=== PATIENT | female | born 1995 | race Caucasian/White ===

== ENCOUNTER 2019-10-23 19:49 | Outpatient (REF) | payer BC, SELFPAY | END 2019-10-23 20:09 | LOC: LBN 19:49 | PROVIDERS: PCP Internal Medicine; Visit Provider Internal Medicine | DX: N39.0 Urinary tract infection, site not specified (principal); R30.0 Dysuria | CPT/HCPCS: 87077; 87086; 87186 ==

== ENCOUNTER 2023-06-08 17:55 | Outpatient (REF) | payer SELFPAY | END 2023-06-08 17:56 | disposition home or self-care (01) | LOC: NCHCN 17:55 | PROVIDERS: PCP Family Medicine; Visit Provider Nurse Practitioner Family | DX: J02.9 Acute pharyngitis, unspecified (principal) | CPT/HCPCS: 87070 ==

== ENCOUNTER 2024-01-18 15:38 | Outpatient (REF) | payer BC, SELFPAY | END 2024-01-18 15:39 | disposition home or self-care (01) | LOC: LBN 15:38 | PROVIDERS: PCP Family Medicine; Visit Provider Obstetrics & Gynecology | DX: R30.0 Dysuria (principal) | CPT/HCPCS: 87077; 87086; 87186 ==

== ENCOUNTER 2024-03-23 16:33 | Outpatient (CLI) | payer BC, SELFPAY ==
[2024-03-23 17:04] LABS: HCG Quant, Pregnancy 1 mIU/mL (1-3)
[2024-03-23 22:39] LABS: Progesterone 0.6 ng/mL (See Table)
== END 2024-03-23 16:34 | disposition home or self-care (01) ==
LOC: LBO 16:33
PROVIDERS: PCP Family Medicine; Visit Provider Obstetrics & Gynecology
DX: N97.9 Female infertility, unspecified (principal); Z31.9 Encounter for procreative management, unspecified; R30.0 Dysuria
CPT/HCPCS: 36415; 84144; 84702

== ENCOUNTER 2024-04-11 21:13 | Outpatient (REF) | payer BC, SELFPAY | END 2024-04-11 21:14 | disposition home or self-care (01) | LOC: LBN 21:13 | PROVIDERS: PCP Family Medicine; Visit Provider Obstetrics & Gynecology | DX: R30.0 Dysuria (principal) | CPT/HCPCS: 87077; 87086; 87186 ==

== ENCOUNTER 2024-05-24 14:17 | Outpatient (CLI) | payer BC, SELFPAY ==
[2024-05-24 13:08] LABS: HCG Quant, Pregnancy 1 mIU/mL (1-3)
== END 2024-05-24 14:18 | disposition home or self-care (01) ==
LOC: LBO 14:18
PROVIDERS: PCP Family Medicine; Visit Provider Obstetrics & Gynecology
DX: Z32.02 Encounter for pregnancy test, result negative (principal)
CPT/HCPCS: 36415; 84702

== ENCOUNTER 2024-07-18 10:19 | Outpatient (REF) | payer BC, SELFPAY | END 2024-07-18 10:20 | disposition home or self-care (01) | LOC: LBN 10:19 | PROVIDERS: PCP Family Medicine; Visit Provider Obstetrics & Gynecology | DX: R30.0 Dysuria (principal) | CPT/HCPCS: 87086 ==

== ENCOUNTER 2024-08-17 01:10 | Outpatient (CLI) | payer BC, SELFPAY ==
[2024-08-17 16:18] LABS: Panorama Kit Sent via Fed Ex
[2024-08-17 16:33] LABS: Abs Immature Grans 0.03 10^3/uL (0.0-0.06); Absolute Basophil Count 0.03 10^3/uL (0.0-0.2); Absolute Monocyte Count 0.54 10^3/uL (0.1-0.8); Basophils % 0.3 %; Eosinophils % 1.8 %; HCT 40.7 % (36.0-46.0); HGB 13.8 g/dL (11.2-15.7); Immature Grans % 0.3 %; Lymphocytes % 18.5 %; MCH 29.3 pg (27.0-33.0); MCHC 33.9 % (32.0-36.0); MCV 86 fL (80-95); MPV 9.8 fL (8.0-11.0); Monocytes % 4.8 %; Neutrophils % 74.3 %; Platelet Count 297 10^3/uL (130-400); RBC 4.71 10^6/uL (3.93-5.22); RDW 11.7 % (11.7-14.6); RDW-SD 37.4 fL; WBC 11.27 10^3/uL (4.4-10.8)
[2024-08-17 16:46] LABS: Absolute Lymphocyte Count 2.08 10^3/uL (1.2-3.4); Absolute Neutrophil Count 8.37 10^3/uL (1.2-6.7)
[2024-08-20 09:26] LABS: Hepatitis B Surface Ag Negative (Negative)
[2024-08-20 09:52] LABS: HIV-1/2 Ag & Ab Screen Negative (Negative)
[2024-08-20 09:58] LABS: Hepatitis C Ab w Rflx HCV PCR Negative (Negative)
[2024-08-20 11:47] LABS: Varicella IgG Antibody Negative (See Note)
[2024-08-20 11:49] LABS: Rubella IgG Ab (UVM) Positive (See Note)
[2024-08-21 13:58] LABS: Syphilis IgG w/Reflex Nonreactive (Nonreactive)
[2024-08-22 18:19] LABS: Specimen WB Whole Blood
[2024-08-30 19:26] LABS: Result Summary NEGATIVE; Specimen WB Whole Blood
== END 2024-08-17 01:11 | disposition home or self-care (01) ==
LOC: LBO 01:10
PROVIDERS: PCP Family Medicine; Visit Provider Advanced Practice Midwife
DX: Z34.91 Encounter for supervision of normal pregnancy, unspecified, first trimester (principal)
CPT/HCPCS: 36415; 81220; 81222; 81329; 86787; 86803; 86850; 86900; 86901; 87340; 87389; 85025; 86762; 86780

== ENCOUNTER 2024-08-17 14:19 | Outpatient (REF) | payer BC, SELFPAY ==
[2024-08-17 17:45] LABS: *AMPHETAMINES SCREEN URINE Negative (Negative); *BARBITURATES SCREEN URINE Negative (Negative); *BENZODIAZEPINES SCREEN URINE Negative (Negative); Cannabinoids THC Negative (Negative); Cocaine Screen,Urine Negative (Negative); METHADONE URINE SCREEN Negative (Negative); OPIATES URINE SCREEN Negative (Negative); Tricyclic Antidepressants Negative (Negative)
[2024-08-20 12:01] LABS: Fentanyl Scr w/Rfx Confirm Negative ng/mL (<1)
[2024-08-24 15:14] LABS: Buprenorphine Negative ng/mL (Cutoff: 5.0); Norbuprenorphine Negative ng/mL (Cutoff: 2.5)
== END 2024-08-17 14:20 | disposition home or self-care (01) ==
LOC: LBN 14:19
PROVIDERS: PCP Family Medicine; Visit Provider Advanced Practice Midwife
DX: Z34.91 Encounter for supervision of normal pregnancy, unspecified, first trimester (principal)
CPT/HCPCS: 80307; 80348; 87086

== ENCOUNTER 2024-11-29 04:02 | Outpatient (CLI) | payer BC, SELFPAY ==
[2024-11-29 10:52] LABS: Abs Immature Grans 0.10 10^3/uL (0.0-0.06); HCT 37.7 % (36.0-46.0); HGB 12.5 g/dL (11.2-15.7); Immature Grans % 1.1 %; MCH 29.8 pg (27.0-33.0); MCHC 33.2 % (32.0-36.0); MCV 90 fL (80-95); MPV 9.6 fL (8.0-11.0); Platelet Count 268 10^3/uL (130-400); RBC 4.20 10^6/uL (3.93-5.22); RDW 12.9 % (11.7-14.6); RDW-SD 42.1 fL; WBC 9.39 10^3/uL (4.4-10.8)
[2024-11-29 11:09] LABS: Glucose,1 Hr (Glucola) 126 mg/dL (80-140)
== END 2024-11-29 04:03 | disposition home or self-care (01) ==
LOC: LBO 04:02
PROVIDERS: Obstetrics & Gynecology; PCP Family Medicine; Visit Provider Advanced Practice Midwife
DX: Z34.93 Encounter for supervision of normal pregnancy, unspecified, third trimester (principal)
CPT/HCPCS: 36415; 82950; 85025

== ENCOUNTER 2024-11-29 11:35 | Outpatient (REF) | payer BC, SELFPAY | END 2024-11-29 11:36 | disposition home or self-care (01) | LOC: LBN 11:35 | PROVIDERS: PCP Family Medicine; Visit Provider Advanced Practice Midwife | DX: N39.0 Urinary tract infection, site not specified (principal); N12 Tubulo-interstitial nephritis, not specified as acute or chronic | CPT/HCPCS: 87086 ==

== ENCOUNTER 2024-12-28 17:09 | Outpatient (REF) | payer BC, SELFPAY ==
[2024-12-28 18:57] LABS: Cannabinoids THC Negative (Negative)
[2024-12-31 11:43] LABS: Fentanyl Scr w/Rfx Confirm Negative ng/mL (<1)
== END 2024-12-28 17:10 | disposition home or self-care (01) ==
LOC: LBN 17:09
PROVIDERS: PCP Family Medicine; Visit Provider Advanced Practice Midwife
DX: Z34.93 Encounter for supervision of normal pregnancy, unspecified, third trimester (principal)
CPT/HCPCS: 80307; 80348

== ENCOUNTER 2025-01-23 12:21 | Outpatient (REF) | payer BC, SELFPAY | END 2025-01-23 12:22 | disposition home or self-care (01) | LOC: LBN 12:21 | PROVIDERS: PCP Family Medicine; Visit Provider Advanced Practice Midwife | DX: Z34.93 Encounter for supervision of normal pregnancy, unspecified, third trimester (principal) | CPT/HCPCS: 87081 ==

== ENCOUNTER 2025-02-21 18:48 | Outpatient (CLI) | payer BC, SELFPAY ==
[2025-02-21 19:47] VITALS: BP 125/84; PULSE 81; TEMP 208.2; TEMP 97.9
[2025-02-21] MEDS: Zolpidem 5 MG TAB PO (19:55)
--- NOTE | 2025-02-21 20:00 | NUR.NOTE ---
Nursing Note: Pt given Gaston Vasquez. Going home with SO to sleep and hydrate. No emesis while here.
--- NOTE | 2025-02-22 07:36 | W.OBNST ---
Date of service: 02/22/25 Time of Service: 07:36 NST Evaluation Reason for NST Reasons for Nonstress Test: OTHER, SEE COMMENT Reason for NST Other: Cramping, Rule out Labor Gestational Age Gestational Age in Weeks and Days: 39 Weeks and 4Days Test and Monitor Explained Test/Monitor Explained: Test Explained Vital Signs Blood Pressure: 125/84 Pulse: 81 Temperature: 208.2 F Weight: 187 lb Urine Results Urine Protein: Negative Urine Ketones: Positive Urine Glucose: Negative Urine Blood: Negative NST Information Date on Monitor: 02/21/25 Time on Monitor: 19:05 Date off Monitor: 02/21/25 Time off Monitor: 19:30 Total Time on Monitor: 25 NST Interventions: PO Hydration and Notify Provider Contraction Frequency: mild, irregular Comments: pt states she feels cramps NST Evaluation Patient States Movement: Present FHR Baseline: 140 Variability: Moderate 6-25 bpm Accelerations: 15x15 Decelerations: None NST Results: Reactive Note Ultrasound Done: N/A. NST Note Note: pt declines cervical check states no longer nauseated and has zofran tabs at home accepts ambien 5 mg PO for sleep NST Reviewed and Verified by: Morena Linares
[2025-02-22 07:37] VITALS: BP 125/84; PULSE 81; TEMP 208.2; TEMP 97.9
== END 2025-02-21 20:03 ==
LOC: BCD 18:49 → OBS 19:21
PROVIDERS: PCP Family Medicine; Visit Provider Advanced Practice Midwife
DX: Z3A.39 39 weeks gestation of pregnancy (principal); O47.1 False labor at or after 37 completed weeks of gestation
CPT/HCPCS: 59025

== ENCOUNTER 2025-02-26 05:06 | Inpatient (IN) | payer BC, SELFPAY ==
[2025-02-26] VITALS (258 sets, daily range): BP systolic 92–242; BP diastolic 50–172; PULSE 68–155; RESP 18–20; TEMP 36.6–37.6; O2SAT 80–100; BMI 33.5
--- NOTE | 2025-02-26 05:09 | HPE_ITS ---
Date of service: 02/26/25 Time of Service: 05:09 Assessment and Plan Assessment and plan (1) Spontaneous onset of labor: Status: Acute Assessment and plan: Admit to Center and routine admission labs. Comfort measures. Amada desires epidural at this time for pain relief. Anticipate . OB-HPI Labor/Delivery History of Present Illness Reason for Visit: NST Chief Complaint: Uterine Contractions. AYDEN Calculator Estimated Delivery Date Method Current WG Current Estimate 02/24/25 LMP (Certain) 40w 2d Other Estimates 02/25/25 Ultrasound #1 40w 1d Comments: Amada has been having regular contractions since 010 which are now stronger. History of Present Expected Delivery Route/Plan - CNM FOB - Brett Paris (his first child) BG Varicella non-immune, offer vaccines (pt aware) Wants access to tub, imagines she will want an epidural at some point; sole labor support=FOB GBS negative Specific Issues/Plan 1. Infertility treatment with Clomid for conception, Rx'ed at [facility]. 2. Nausea - zofran escribed. protonix 40 mg PO daily escribed. stopped taking when nausea improved. . 3. Migraine- taking excedrin with episodes of migraine, Referred to [facility] for consultation regarding headaches. 4. Restless legs (pre-dates ) - magnesium glycinate recommended daily. Stopped taking it. 5. Genetic testing options, SMA/CF - neg, cfDNA low risk female, Rh- neg. AFP declined 6. Reports last pap 2023 in [facility], records release signed- normal pap 2022. 7. Rh neg, (fetus Rh- by Ron), Pt aware - does not need Rhogam. 8. 5P screen+ patient ETOH use disorder, initial UDS=negative, 28 wk UDS=negative 9. At 19 wk FAS placenta low lying, repeat 28-30 wks 10/8: resolved: placental tip 4.3cm from os Assessment: History Reviewed & Current Informed Consent Informed Consent: Regional Anesthesia [facility] All Active Problems (Updated 02/26/25 @ 05:12 by Araseli Espinal CNM) Spontaneous onset of labor (Acute) Susceptible to varicella (non-immune), currently (Acute) Rh negative status during (Acute) fetus Rh neg (Acute) Migraine (Acute 11/27/13) Neuro consult: 10/2013 With & without migraine Basilar component Medical History Low lying placenta nos or without hemorrhage, unspecified trimester resolved at third trimester ultrasound Pyelonephritis Frequent UTI Infertility management Conceived while taking clomid Dysmenorrhea (10/16/13) Former smoker (10/16/13) 3Y Family History (Updated 08/17/24 @ 20:53 by Mackenzie Lopez) Mother Hypertension Migraines Sister Gestational hypertension Migraines Asthma Father Alcohol use disorder Maternal Grandfather Heart disease Hypertension Social History (Updated 08/17/24 @ 20:45 by Araseli Espinal CNM) Smoking/Tobacco Use Status: Former Tobacco Use Smoking risk assessment performed?: Yes Alcohol Intake: current Alcohol Intake frequency: holidays/special occasions only Drug use: Occasionally Substance use type: former substance user Date of last use: past use Adopted: No Foster care: No Household members: none Housing: house Number of Children: 0 Communication Needs: Corrective Lenses 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 [employer] Sexually active: Yes Current gender identity: male What is your relationship status?: Panel score (0-1 are the most socially isolated patients): 0 What type of physical activity do you participate in: walking Special flor needs: No Seatbelt use: always Helmet use: Yes Drive intox or ride w/intox catshovel driver: No Working smoke detector in home: Yes Fire extinguisher in home: Yes Carbon monox detector in home: Yes Do you feel safe at home: Yes Female Reproductive History Menstrual control method: none History History 4 Para 0 Hx # Term Pregnancies 0 Multiple births 0 Hx # Pregnancies 0 Ectopic pregnancies 0 AB induced 0 Hx Number of Living Children 0 AB spontaneous 3 Past Pregnancies Del. Date GA/Weeks # Preg Succ Route Wgt Sex Labor Lgth Anesth esia Location Prov Complic 09/29/23 Delivery Date: 09/29/23 Last Updated by: Nany Meeks CNM SABs x 3 early (8-12 weeks per pt, never confirmed CRL) Meds Allergies and Home Medications Allergies Allergy/AdvReac Type Severity Reaction Status Date / Time No Known Allergies Allergy Verified 02/20/25 09:58 Home Medications ?Medication ?Instructions ?Recorded ?Confirmed ?Type vits no.126-ferrous fum tab PO DAILY 01/18/24 02/20/25 History 28 mg iron-folic acid 800 mcg tablet (Classic ) pantoprazole 40 mg tablet,delayed 40 mg PO DAILY PRN 0 10/03/24 02/20/25 History release (Protonix) Exam Physical Exam Vital Signs Reviewed: Yes Constitutional Constitutional: mild distress Detailed Labor and Delivery Exam Dilation: 1 Effacement (%): 100 station: -1 Cervix position: posterior Consistency: soft Wesley Score: Cervical Points Exam 0 1 2 3 Dilation Closed 1-2cm 3-4 cm 5-6cm Effacement 0-30% 40-50% 60-70% 80% Consistency Firm Medium Soft Station -3 -2 -1,0 +1,+2 Position Posterior Mid Anterior Amniotic Membrane Status: Intact Monitor Mode: External Contraction Frequency(min): every 2-3 Contraction Duration(sec): 60 Contraction Intensity: Moderate/Strong Fetus A Heart Rate Baseline: 135 Monitor Accelerations: 15 X 15 Variability: Moderate (6-25 BPM) Presentation: Cephalic Categories: Category I Est. Weight: 7 lb HEENT Exam HEENT Exam: Normal Respiratory Exam Respiratory Exam: Normal Cardiovascular Exam Cardiovascular Exam: Normal Abdominal Exam Abdominal Exam: Normal Exam Exam: Normal Skin Exam Skin Exam: Normal Psychiatric Exam Psychiatric Exam: Normal Risk Assessment Risk for Shoulder Dystocia Historical/Initial OB: NEGATIVE FOR: Pelvic Abnormality, Pre- BMI>30, Previous Shoulder Dystocia or Previous Macrosomia 36 Weeks: NEGATIVE FOR: Current Gestational DM, EFW>4500gms or Maternal Weight Gain>40lbs 40 Weeks: NEGATIVE FOR: EFW> 4500 gms, Maternal Weight Gain >40lb or Post Dates Increased Risk?: No Delivery Plan @ 40 wks: Risk for Pre-Eclampsia Date Initiated/Initials: KM 08/17/24 Yes, if one or more: NEGATIVE FOR: Hx Pre-E/Gest HTN, Chronic HTN, Multiple Gestation, Pre-gestational DM, Renal Disease, Systemic Lupus or APA Syndrome Yes, if 2 or more: POSITIVE FOR: Nulliparity and Mother/Sister w/ Pre-E; NEGATIVE FOR: Age>= 35 yrs, >10yr btwn pregnancies, BMI>30, ethinicty or Previous IUGR Risk for Post- Hemorrhage Initial: NEGATIVE FOR: Multiple Gestation, Previous PPH, Known Clotting Deficiency, Grand Multiparity or Anticoagulation 36 Weeks: NEGATIVE FOR: Anemia, hgb<10, Low platelets(thrombocytopenia), Gestational HTN or Pre-E, Polyhydraminios or EFW>4500gms 40 Weeks: NEGATIVE FOR: Anemia, hgb<10, Low platelets (thrombocytopenia), Gestation HTN or Pre-E, Polyhydraminios or EFW>4500gms At Risk?: No Risks Reviewed Risks Reviewed Upon Admission: Yes
[2025-02-26] MEDS: Lactated Ringers 1,000 ML 125 ML IV (06:00)
[2025-02-26 06:45] LABS: Abs Immature Grans 0.15 10^3/uL (0.0-0.06); HCT 38.7 % (36.0-46.0); HGB 12.7 g/dL (11.2-15.7); Immature Grans % 1.0 %; MCH 28.0 pg (27.0-33.0); MCHC 32.8 % (32.0-36.0); MCV 85 fL (80-95); MPV 10.5 fL (8.0-11.0); Platelet Count 261 10^3/uL (130-400); RBC 4.53 10^6/uL (3.93-5.22); RDW 13.2 % (11.7-14.6); RDW-SD 40.9 fL; WBC 15.16 10^3/uL (4.4-10.8)
[2025-02-26] MEDS: FentaNYL/ROPIvacaine 2 mcg/ml and 0.1% 200 ML CADD Cassette EP (06:45)
--- NOTE | 2025-02-26 06:45 | ANES.PREOP_ITS ---
General Info Date of Service Date Performed: 02/26/25 Height: 5 ft 2 in Weight: 83.007 kg Body Mass Index (BMI): 33.5 Meds Allergies and Home Medications Allergies Allergy/AdvReac Type Severity Reaction Status Date / Time No Known Allergies Allergy Verified 02/20/25 09:58 Home Medication ?Medication ?Instructions ?Recorded vits no.126-ferrous fum tab PO DAILY 01/18/24 28 mg iron-folic acid 800 mcg tablet (Classic ) pantoprazole 40 mg tablet,delayed 40 mg PO DAILY PRN 0 10/03/24 release (Protonix) Current Visit Medications: Current Medications Generic Name Dose Route Start Last Admin Trade Name Freq PRN Reason Stop Dose Admin Fentanyl/Ropivacaine 200 ml 02/26/25 05:45 Fentanyl/Ropivacaine 2 Mcg/Ml And 0.1% 200 Ml Cadd Cassette EP DIRECTED SARA Ringer's Solution 1,000 mls @ 125 mls/hr 02/26/25 05:15 IV INFUSION SARA Sodium Chloride 0 ml 02/26/25 05:06 Normal Saline Flush 10 Ml Syr IVP PRN PRN Sodium Chloride 0 ml 02/26/25 08:30 Normal Saline Flush 10 Ml Syr IVP BID SARA Sodium Chloride 0 ml 02/26/25 05:06 Normal Saline 10 Ml Vial IJ DIRECTED PRN PFSH Active Problems Active Problems: Problem Status Onset Code Spontaneous onset of labor Acute Susceptible to varicella (non-immune), currently Acute O09.899, Z28.39 Rh negative status during Acute O26.899, Z67.91 Acute Z34.90 Migraine Acute 11/27/13 G43.909 Medical History Medical History Low lying placenta nos or without hemorrhage, unspecified trimester resolved at third trimester ultrasound Pyelonephritis Frequent UTI Infertility management Conceived while taking clomid Dysmenorrhea (10/16/13) Former smoker (10/16/13) 3Y Tobacco Smoking/Tobacco Use Status: Former Tobacco Use Alcohol Alcohol Intake: former Substance Use Substance use: Occasionally Substance use type: former substance user Date of last use: past use Prental History History 2 4 Para 0 Hx # Term Pregnancies 0 Multiple births 0 Hx # Pregnancies 0 Ectopic pregnancies 0 AB induced 0 Hx Number of Living Children 0 AB spontaneous 3 Past Pregnancies Del. Date GA/Weeks # Preg Succ Route Wgt Sex Labor Lgth Anesth esia Location Prov Complic 09/29/23 Delivery Date: 09/29/23 Last Updated by: Nany Meeks, MELLISAM SABs x 3 early (8-12 weeks per pt, never confirmed CRL) Vital Signs and Lab Results Vital Signs Most Recent Vital Signs in EMR: Most Recent Vital Signs Temp Pulse Resp BP Pulse Ox 36.6 C 88 20 111/50 L 100 02/26/25 05:39 02/26/25 06:41 02/26/25 05:39 02/26/25 06:41 02/26/25 06:40 Lab Results 02/26/25 05:39 Blood Type / Crossmatch: 2 Antibody Screen NEGATIVE Today Complete Blood Count: 2 WBC, (4.4-10.8) 15.16 10^3/uL H Today, 05:39 RBC, (3.93-5.22) 4.53 10^6/uL Today, 05:39 Hgb, (11.2-15.7) 12.7 g/dL Today, 05:39 Hct, (36.0-46.0) 38.7 % Today, 05:39 Plt Count, (130-400) 261 10^3/uL Today, 05:39 Anesthesia Assessment and Plan Anesthesia History Personal History: No History of Anesthesia Complications Family History: No Family History of Anesthesia Complications Exercise Tolerance Exercise Tolerance: Metabolic Equivalents>4 Cardiac & Pulmonary Exam Cardiac Exam: Normal S1/S2 Heart Sounds Pulmonary Exam: Clear Bilateral Breath Sounds Implantable Cardiac Device Does patient have a Pacemaker or an ICD?: No Airway Exam Known Difficult Airway: No Mallampati Class: 2 Mouth Opening: Normal (> 3cm) Thyromental Distance: Greater than 3 cm Neck Range of Motion: Full ROM Neck Circumference: Normal Teeth Condition: Normal Dentition ASA Classification ASA Score: ASA 2 Emergency Case?: No NPO Status NPO Status: NPO Clears >2 hours, Solids >8 hours and Full Stomach Status Status: Confirmed Anesthesia Plan Resuscitation Status: Full Code Anesthesia Technique: Labor Epidural Airway Planned: Natural Airway Monitors Used: Standard Monitors
--- NOTE | 2025-02-26 06:45 | W.ANESNEU ---
Epidural/Spinal Catheter Date Performed: 02/26/25 Procedure Start: 06:15 Procedure Stop: 07:05 Requesting Provider: Araseli Cai Procedure Location: Obstetrics Reason Performed: Labor Epidural Standard Monitors Applied: Blood Pressure, SpO2 and See EMR for corresponding vital signs Patient Position: Sitting Sedation Given (Indicate Dose Given): No Sedation given Patient Mental Status: Awake Sterility: Hand Hygiene, Surgical Cap, Surgical Mask, Sterile Gloves, Sterile Drape/Sheet and Chlorhexidine Procedure Location: L3-L4 Interspace Epidural Needle: Tuohy 18 Gauge Needle Length: 3.5 Inch Needle Approach: Midline Epidural Procedure: Skin Prepped, Sterile Drape Placed, 1% Lidocaine to skin and subcutaneous tissue with 25G needle, Tuohy Needle placed, LAVELLE to Saline Used, Epidural Catheter Placed, Negative Heme, Negative CSF Flow and Tuohy Needle Removed Catheter Placed?: Catheter Placed Test Dose (Indicate Dose Given): 3ml 1.5% Lidocaine with 1:200K Epinephrine Given and Negative Test Dose Loss of Resistance Depth (cm): 5 Catheter depth at skin (cm): 12 Dressing: Sorbaview Dressing Placed, Mastisol Used and Dressing reinforced with Tape Epidural Provider Bolus (Indicate Dose Given): Total bolus dose given in 3-5 ml divided doses and Total Ropivacaine 0.1% with Fentanyl 2mcg/ml Given from pump. (ml) Dose:: 5ml Additives (Indicate Dose Given ): None Infusion Medication: Medication Infusion Began Medication Infusion: Ropivacaine 0.1% with Fentanyl 2mcg/ml Maintenance Infusion Rate (ml/hour): 10 PCEA Bolus Dose (ml): 5 Block Level: N/A Paresthesia: Right Paresthesia Duration: Transient Ultrasound: Not Used Number of Attempts (See previous attempts in note section): 1 Procedure Tolerated: No Complications and Patient tolerated well Procedure Outcome: Successful Procedure Comment:: Catheter placed with ease. Negative test, dosed with good bilateral relief. Educated on PCEA. Performed By: Pierre Bryant
[2025-02-26] MEDS: Oxytocin/Normal Saline 30 UNIT/500 ML BAG 2 UNITS IV (07:43)
--- NOTE | 2025-02-26 10:56 | W.PM.OBNL1 ---
Date of service: 02/26/25 Time of Service: 10:56 Informed Consent Informed Consent: Augmentation of Labor, Regional Anesthesia and Risk,Benefits,Alternatives Discussed Pelvic Exam Dilation: 8 Effacement (%): 100 station: 0 Contractions Monitor Mode: External Contraction Frequency(min): q2-3 Intensity: Moderate/Strong Fetus A Monitor: External (US) Heart Rate Baseline: 140 Variability: Moderate (6-25 BPM) Categories: Category I Accelerations: Present Decelerations: None Amniotic Membrane Status: Ruptured Rupture Method: Spontaneous Amniotic Fluid: Clear Amount: moderate Date of Membrane Rupture: 02/26/25 Assessment and Plan Assessment and plan (1) Spontaneous onset of labor: Status: Acute Assessment and plan: A: Effective epidural, SROM confirmed, active labor Pitocin augmentation was started after epidural was placed Category 1 tracing, GBS negative P: Anticipate today Objective Abnormal lab results 02/26/25 Range/Units 05:39 WBC 15.16 H (4.4-10.8) 10^3/uL Absolute Neutrophils 12.13 H (1.2-6.7) 10^3/uL Temp Pulse Resp BP Pulse Ox 97.9 F 83 18 115/78 100 02/26/25 07:54 02/26/25 10:55 02/26/25 09:00 02/26/25 10:43 02/26/25 10:55 Laboratory Results WBC 15.16 10^3/uL (4.4-10.8) H 02/26/25 05:39 RBC 4.53 10^6/uL (3.93-5.22) 02/26/25 05:39 Hgb 12.7 g/dL (11.2-15.7) 02/26/25 05:39 Hct 38.7 % (36.0-46.0) 02/26/25 05:39 MCV 85 fL (80-95) 02/26/25 05:39 MCH 28.0 pg (27.0-33.0) 02/26/25 05:39 MCHC 32.8 % (32.0-36.0) 02/26/25 05:39 RDW 13.2 % (11.7-14.6) 02/26/25 05:39 Plt Count 261 10^3/uL (130-400) 02/26/25 05:39 MPV 10.5 fL (8.0-11.0) 02/26/25 05:39 Immature Gran % 1.0 % 02/26/25 05:39 Neutrophils % 80.0 % 02/26/25 05:39 Lymphocytes % 13.5 % 02/26/25 05:39 Monocytes % 4.9 % 02/26/25 05:39 Eosinophils % 0.3 % 02/26/25 05:39 Basophils % 0.3 % 02/26/25 05:39 Nucleated RBC % 0.0 % (0.0-0.3) 02/26/25 05:39 Absolute Neutrophils 12.13 10^3/uL (1.2-6.7) H 02/26/25 05:39 Absolute Lymphocytes 2.05 10^3/uL (1.2-3.4) 02/26/25 05:39 Absolute Monocytes 0.74 10^3/uL (0.1-0.8) 02/26/25 05:39 Absolute Eosinophils 0.05 10^3/uL (0.0-0.7) 02/26/25 05:39 Absolute Basophils 0.05 10^3/uL (0.0-0.2) 02/26/25 05:39 ABO/Rh O Negative 02/26/25 05:39 Antibody Screen NEGATIVE 02/26/25 05:39 Subjective Interval history since last seen: water broke with a pop. feeling some rectal pressure with contractions, epidural is effective though pt can feel when she has a contraction.
[2025-02-26] MEDS: Oxytocin/Normal Saline 30 UNIT/500 ML BAG 95 UNITS IV (13:53)
[2025-02-26] MEDS: miSOPROStol 200 MCG TAB 600 MCG SL (14:04)
[2025-02-26] MEDS: Methylergonovine 0.2 MG/ML VIAL (14:43)
[2025-02-26] MEDS: TRANEXAMIC ACID/SOD. CHL. 1,000 MG/100 ML BAG 600 MG IVPB (14:45)
[2025-02-26] MEDS: fentaNYL 100 MCG/2 ML VIAL (14:53)
--- NOTE | 2025-02-26 15:33 | OBVDS_ITS ---
Date of service: 02/26/25 Time of Service: 15:33 OB Labor/ Delivery Information Baby A Delivery Delivery Method: Spontaneaous Presentation: Cephalic Cephalic Position: Vertex Vertex Position: Left Occipital Anterior Breech Position: N/A Cord Description-Baby A: 3 Vessels and Nuchal Cord Amniotic Fluid: Clear Quantitative Blood Loss: 875 Delivery Outcome: Liveborn Transferred: Remains with Mother Note: Patient progresses to full dilation after SROM and pitocin augmentation @ 6mu/min, category 1 tracing noted at 2nd stage huddle, jenkins catheter removed and no increased risks for PPH or SD identified. Pt chose to push in kneeling position on the bed and within the first hour accomplished of a vigorous female, nuchal cord reduced and nuchal hand noted, shoulder delivered with ease and pt assisted to semi-fowlers, infant placed in mothers arms for skin to skin, pitocin bolus begun, cord limp and flaccid, clamped and cut by FOB, cord blood collected. [place] placenta delivered intact with 3VC, 1st degree perineal laceration repaired with 3.0 Vicryl under epidural anesthesia, no other lacerations visualized, upper vaginal vault and cvx sweep done for no clots, steady trickle of lochia noted and 600 mcg misoprostel PO given. Pt remains hemostatically stable bonding with baby, apgars 9/9, weight 3120 gms. Providers Nurse Maintenance Shop Clerk: Morena Linares Nurse: Helen Mehta Nurse: Brenda Quinn Labor/Delivery Information Steroids Given: None Reason Steroids Not Administered: N/A Group Beta Strep: Negative Antibiotics Administered: No Number of Doses of Antibiotics: 0 Rubella Status: Immune Blood Type: O- Varicella Immunity: Nonimmune Shoulder Dystocia: No Stages of Labor Onset of Labor Date: 02/25/25 Onset of Labor Time: 19:00 Complete Dilatation Date: 02/26/25 Complete Dilatation Time: 12:43 Labor - Stage 1 Duration: 17 hours and 43 minutes ROM Baby A: 02/26/25 ROM Baby A: 09:40 ROM Total Time- Baby A: [id number] Delivery Date-Baby A: 02/26/25 Delivery Time-Baby A: 13:51 Labor Stage 2 Duration: 1 hours and 8 minutes Placenta Delivery Date-Baby A: 02/26/25 Placenta Delivery Time-Baby A: 14:00 Labor-Stage 3 Duration: 9 minutes Total Length of Labor-Baby A: 18 hours and 51 minutes Placenta Status: Delivered Baby A Gender: Female Gestational Age in Weeks/Days: 40 Weeks and 2 Days weight: 6 lb 14.055 oz Weight Comment: 3120 gms Score-1 Minute Interval(Baby A) Heart Rate-1 minute: 100 BPM or Greater Respiratory Effort- 1 minute: Spontaneous/Strong Cry Muscle Tone-1 minute: Active Movement Reflex Response-1 minute: Prompt Response Color-1 minute: Bluish Hands or Feet Total Score-1 minute: 9 Score-5 Minute Interval(Baby A) Heart Rate- 5 minute: 100 BPM or Greater Respiratory Effort-5 minute: Spontaneous/Strong Cry Muscle Tone-5 minute: Active Movement Reflex Response-5 minute: Prompt Response Color-5 minute: Bluish Hands or Feet Total Score- 5 minute: 9
--- NOTE | 2025-02-26 15:59 | W.ANESPOSTOP ---
Postoperative Evaluation Date, Time and Location Date Performed: 02/26/25 Time Performed: 15:59 Patient Location: Obstetrics Vital Signs Most Recent Imported Vital Signs: Most Recent Vital Signs Temp Pulse Resp BP Pulse Ox 36.7 C 119 H 18 130/70 99 02/26/25 13:12 02/26/25 15:57 02/26/25 13:00 02/26/25 15:39 02/26/25 15:57 Pain Score Most Recent Pain Score: Most Recent Pain Score Pain Level 0 02/26/25 11:00 Assessment Mental Status: Awake (Alert & Oriented to Patient Baseline) Airway and Respiratory Function: Patent airway with normal (patient baseline) respiratory exam Cardiovascular Function: Hemodynamically Stable Hydration Status: Adequately Hydrated Nausea & Vomiting: No Nausea or Vomiting Pain: Pt. Denies Any Pain Peripheral Nerve Block: Patient did not receive a nerve block
[2025-02-26] MEDS: Acetaminophen 325 MG TAB 650 MG PO (21:30)
[2025-02-26] MEDS: Ibuprofen 600 MG TAB PO (21:30)
[2025-02-26] MEDS: Hamamelis Leaf/Glycerin 100 EACH BOX PR (21:38)
[2025-02-26] MEDS: Dibucaine 1% 28 GM TUBE TP (21:38)
[2025-02-27 01:23] VITALS: BP 107/75; PULSE 95; RESP 18; O2SAT 96
[2025-02-27] MEDS: Acetaminophen 325 MG TAB 650 MG PO (05:15)
[2025-02-27] MEDS: Ibuprofen 600 MG TAB PO (05:15)
[2025-02-27 06:41] LABS: Abs Immature Grans 0.10 10^3/uL (0.0-0.06); HCT 34.5 % (36.0-46.0); HGB 12.3 g/dL (11.2-15.7); Immature Grans % 0.7 %; MCH 31.5 pg (27.0-33.0); MCHC 35.7 % (32.0-36.0); MCV 88 fL (80-95); MPV 9.8 fL (8.0-11.0); Platelet Count 202 10^3/uL (130-400); RBC 3.91 10^6/uL (3.93-5.22); RDW 13.5 % (11.7-14.6); RDW-SD 43.8 fL; WBC 14.26 10^3/uL (4.4-10.8)
[2025-02-27 09:30] VITALS: BP 110/76; PULSE 102; TEMP 36.6
--- NOTE | 2025-02-27 10:06 | W.PM.OBPNV1 ---
Date of service: 02/27/25 Time of Service: 10:06 Assessment and Plan Assessment and plan (1) Care and examination of lactating mother: Status: Acute (2) Term delivered: Status: Acute Assessment and plan: A: PPD#1, satisfied with experience off to a good start Nml course P: Pt desires discharge today when is released Offer varicella vaccine prior to discharge is Rh negative, RhoGam not indicated Pt will not use contraception d/t fertility issues F/up at 2 & 6 wks Written instructions reviewed and given to pt Exam Physical Exam Vital signs: Temp Pulse Resp BP Pulse Ox 98.1 F 95 H 18 107/75 96 02/26/25 21:30 02/27/25 01:23 02/27/25 01:23 02/27/25 01:23 02/27/25 01:23 Vital Signs Reviewed: Yes Constitutional Constitutional: no acute distress, average body habitus and cooperative HEENT Exam HEENT Exam: Normal Neck Exam Neck Exam: Normal Breast Exam Bilateral: Breast Exam: Normal and Soft Nipple Exam: Normal and Uninjured Respiratory Exam Respiratory Exam: Normal Cardiovascular Exam Cardiovascular Exam: Normal Abdominal Exam Abdomen: Other (soft, nontender) Fundal Exam Fundus: Below Umbilicus and Firm Rectal Exam Rectal Exam: Normal Exam Perineum: Repair Intact Extremities Exam Extremity Exam: Normal, Full ROM and Warm to Touch Back/Spine/Pelvis Exam Back Exam: Normal Skin Exam Skin Exam: Normal Neurological Exam Neurological Exam: Normal Psychiatric Exam Psychiatric Exam: Normal Results Hemoglobin/Hematocrit: Hgb 12.3 g/dL (11.2-15.7) 02/27/25 06:30 Hct 34.5 % (36.0-46.0) L 02/27/25 06:30 Abnormal Lab Findings: Abnormal Labs 02/26/25 02/27/25 05:39 06:30 WBC 15.16 H 14.26 H RBC 3.91 L Hct 34.5 L Absolute Neutrophils 12.13 H 11.11 H Absolute Monocytes 0.98 H
--- NOTE | 2025-02-27 10:09 | W.PM.OBDISCH ---
Date of service: 02/27/25 Time of Service: 10:09 DS: Diagnosis Discharge Diagnosis (1) Care and examination of lactating mother: Status: Acute (2) Term delivered: Status: Acute Discharge Plan Disposition Patient Disposition: Home Condition: Good Discharge Details Reason For Visit: Labor Admit Date/Time: 02/26/25 05:06 Admit Provider: Araseli Espinal Attending Provider: Araseli Espinal Primary Care Provider: Jakob Bowling Hospital Course Hospital Course: under epidural anesthesia on day of admission, pt desires discharge on day 1, nml course Home Meds and New Rx's Prescriptions: No Action pantoprazole [Protonix] 40 mg tablet,delayed release (DR/EC) 40 mg PO DAILY PRN Classic 28 mg iron- 800 mcg tablet PO DAILY Discharge Instructions Additional Instructions: 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 Stand Alone Forms: BC Instructions, BC Post Vaginal Deliver, Portal Information Activity:: Activity as Tolerated Equipment/Supplies:: No Equipment Needed Diet:: Normal Diet OB:DS Summary Summary Vaginal Delivery Method: Spontaneaous Episiotomy Description: None Laceration Description: Perineal Laceration Extension: First Degree Contraception Discussed Contraception Discussed: Yes Contraceptive Plan: Not planning to use, Gender-Baby A: Female weight: 6 lb 14.055 oz Status at Discharge Functional status at discharge: independent ambulation Overall status at discharge: patient is progressing back to baseline Mental Status: mental status grossly normal Speech and Movement: speech and movement normal and speech clear Mood: congruent mood Affect: normal affect Exam Physical Exam Vital signs: Temp Pulse Resp BP Pulse Ox 98.1 F 95 H 18 107/75 96 02/26/25 21:30 02/27/25 01:23 02/27/25 01:23 02/27/25 01:23 02/27/25 01:23 Constitutional Constitutional: no acute distress, average body habitus and cooperative HEENT Exam HEENT Exam: Normal Neck Exam Neck Exam: Normal Breast Exam Bilateral: Breast Exam: Normal and Soft Respiratory Exam Respiratory Exam: Normal Cardiovascular Exam Cardiovascular Exam: Normal Abdominal Exam Abdomen: Other (soft, nontender) Fundal Exam Fundus: Below Umbilicus and Firm Exam Perineum: Repair Intact Extremities Exam Extremity Exam: Normal, Full ROM and Warm to Touch Back/Spine/Pelvis Exam Back Exam: Normal Skin Exam Skin Exam: Normal Neurological Exam Neurological Exam: Normal Psychiatric Exam Psychiatric Exam: Normal PFSH All Active Problems (Updated 02/27/25 @ 10:05 by Morena Linares) Care and examination of lactating mother (Acute) Term delivered (Acute) Susceptible to varicella (non-immune), currently (Acute) Migraine (Acute 11/27/13) Neuro consult: 10/2013 With & without migraine Basilar component Medical History Rh negative status during fetus Rh neg Spontaneous onset of labor Low lying placenta nos or without hemorrhage, unspecified trimester resolved at third trimester ultrasound Pyelonephritis Frequent UTI Infertility management Conceived while taking clomid Dysmenorrhea (10/16/13) Former smoker (10/16/13) 3Y Family History (Updated 08/17/24 @ 20:53 by Mackenzie Lopez) Mother Hypertension Migraines Sister Gestational hypertension Migraines Asthma Father Alcohol use disorder Maternal Grandfather Heart disease Hypertension Social History (Updated 08/17/24 @ 20:45 by Araseli Espinal CNM) Smoking/Tobacco Use Status: Former Tobacco Use Smoking risk assessment performed?: Yes Alcohol Intake: former Drug use: Occasionally Substance use type: former substance user Date of last use: past use Adopted: No Foster care: No Household members: none Housing: house Number of Children: 0 Communication Needs: Corrective Lenses current occupation: [employer] AND [employer] Sexually active: Yes Current gender identity: male What is your relationship status?: Panel score (0-1 are the most socially isolated patients): 0 What type of physical activity do you participate in: walking Special flor needs: No Seatbelt use: always Helmet use: Yes Drive intox or ride w/intox trolley coach driver: No Working smoke detector in home: Yes Fire extinguisher in home: Yes Carbon monox detector in home: Yes Do you feel safe at home: Yes Do you feel safe in your relationship?: Yes Female Reproductive History Menstrual control method: none History History 4 Para 0 Hx # Term Pregnancies 0 Multiple births 0 Hx # Pregnancies 0 Ectopic pregnancies 0 AB induced 0 Hx Number of Living Children 0 AB spontaneous 3 Past Pregnancies Del. Date GA/Weeks # Preg Succ Route Wgt Sex Labor Lgth Anesthesia Location [facility] 09/29/23 Delivery Date: 09/29/23 Last Updated by: Nany Meeks, SARAH SABs x 3 early (8-12 weeks per pt, never confirmed CRL) DS: Data Vitals/I&O Vitals and I&O: Vital Signs Temperature 98.1 F 02/26/25 21:30 Temperature 97.9 F 02/26/25 04:43 Temperature Source Oral 02/26/25 21:30 Pulse 95 H 02/27/25 01:23 Pulse 83 02/26/25 04:43 Pulse Rhythm Regular 02/26/25 19:30 Respiratory Rate 18 02/27/25 01:23 Blood Pressure 107/75 02/27/25 01:23 Blood Pressure 107/62 02/26/25 04:43 Blood Pressure Mean 85 02/27/25 01:23 Pulse Oximetry 96 02/27/25 01:23 Oxygen Delivery Method Room Air 02/26/25 05:39 Oxygen Flow Rate 0 02/26/25 05:39 Pain Level 0 02/26/25 11:00 Comment miso given at 1400 02/26/25 18:00 Intake & Output 02/26/25 02/26/25 02/27/25 11:59 23:59 11:59 Intake Total 3.567 / 8643.572 4968 / 1003.567 Output Total 2225 / 2225 100 / 100 Balance 3.567 / -1221.433 -1225 / -1221.433 -100 / -100 Weight 183 lb Intake: IV 3.567 / 8962.930 8072 / 1003.567 Output: Urine 1245 / 1245 100 / 100 Blood 980 / 980 Other: Urine Color Pale Comment pt voided before anesthesia Data Completed and Pending Pending Labs at Discharge: 02/26/25 02/27/25 05:39 06:30 WBC 15.16 H 14.26 H RBC 4.53 3.91 L Hgb 12.7 12.3 Hct 38.7 34.5 L MCV 85 88 MCH 28.0 31.5 MCHC 32.8 35.7 D RDW 13.2 13.5 Plt Count 261 202 MPV 10.5 9.8 Immature Gran % 1.0 0.7 Neutrophils % 80.0 77.9 Lymphocytes % 13.5 13.5 Monocytes % 4.9 6.9 Eosinophils % 0.3 0.7 Basophils % 0.3 0.3 Nucleated RBC % 0.0 0.0 Absolute Neutrophils 12.13 H 11.11 H Absolute Lymphocytes 2.05 1.93 Absolute Monocytes 0.74 0.98 H Absolute Eosinophils 0.05 0.10 Absolute Basophils 0.05 0.04 ABO/Rh O Negative Antibody Screen NEGATIVE
== END 2025-02-27 17:21 | disposition home or self-care (01) | DRG 806 ==
LOC: OBS 14:05 → BCD 14:38 → OBS 14:39
PROVIDERS: Advanced Practice Midwife; Admitting Provider Advanced Practice Midwife; PCP Family Medicine; Visit Provider Advanced Practice Midwife
DX: O26.893 Other specified pregnancy related conditions, third trimester (principal); O99.354 Diseases of the nervous system complicating childbirth; Z37.0 Single live birth; Z3A.40 40 weeks gestation of pregnancy; G43.909 Migraine, unspecified, not intractable, without status migrainosus; G25.81 Restless legs syndrome; Z67.91 Unspecified blood type, Rh negative; O69.81X0 Labor and delivery complicated by cord around neck, without compression, not applicable or unspecified; O70.0 First degree perineal laceration during delivery
CPT/HCPCS: 36415; 86850; 86900; 86901; 59025; 85025; J2210; J3010